=== PATIENT | female | born 1945 | race Caucasian/White ===

== ENCOUNTER 2016-09-05 14:37 | Outpatient (CLI) | payer MEDICARE, OTHER ==
--- NOTE | 2016-09-05 15:36 | XRAY Report ---
EXAM: CHEST RADIOGRAPHY EXAM DATE: 09/05/2016 02:46 PM. CLINICAL HISTORY: SMOKE INHALATION WHEEZING. COMPARISON: 05/10/2015 TECHNIQUE: 2 views. FINDINGS: Lungs/Pleura: No focal opacities evident. No pleural effusion. No pneumothorax. Normal volumes. Mediastinum: Heart and mediastinal contours are unremarkable. Age-related degenerative changes in the spine. None. IMPRESSION: Negative 2-view chest radiography for acute findings or significant change since 05/10/19 16. [facility] Referring Provider Line: [phone] SITE ID: [id number]
== END 2016-09-05 14:38 | disposition home or self-care (01) ==
LOC: DI 14:37
PROVIDERS: ATTEND Internal Medicine
DX: J70.5 Respiratory conditions due to smoke inhalation (principal); R06.2 Wheezing
CPT/HCPCS: 71020

== ENCOUNTER 2016-12-18 13:17 | Outpatient (CLI) | payer MEDICARE, OTHER ==
--- NOTE | 2016-12-18 14:53 | Ultrasound Report ---
RIGHT UPPER QUADRANT ULTRASOUND: 12/18/2016 CLINICAL INDICATION: Distention. TECHNIQUE: Real-time scanning was performed with marketing development representative static images obtained. FINDINGS: The liver measures 18.2 cm. Hepatic echotexture is increased, compatible with fatty infil tration. No focal parenchymal lesion or intrahepatic biliary dilatation is present. The common bile duct measures 5 mm. The gallbladder is normal. The right kidney measures 13.4 cm, and demonstrates a 4.4 cm superior pole cyst. No solid renal lesion or hydronephrosis is seen. IMPRESSION: FATTY INFILTRATION OF THE LIVER. INCIDENTAL RIGHT RENAL CYST. JOB #: [id number] EXT JOB #:[id number]
== END 2016-12-18 13:18 | disposition home or self-care (01) ==
LOC: DI 13:17
PROVIDERS: ATTEND Internal Medicine
DX: K76.0 Fatty (change of) liver, not elsewhere classified (principal)
CPT/HCPCS: 76705

== ENCOUNTER 2017-04-18 16:18 | Outpatient (CLI) | payer MEDICARE, OTHER ==
--- NOTE | 2017-04-19 15:51 | Mammography Report ---
DATE OF SERVICE: 04/18/2017 DIGITAL SCREENING MAMMOGRAM: 04/18/2017 CLINICAL INDICATION: A 71-year-old with history of benign right excisional biopsy for screening. COMPARISON: Films from [place], [place] dated 02/15/2012, 09/08/2010. TECHNIQUE: Routine CC and MLO projections were obtained of the breasts. FINDINGS: The breasts again demonstrate scattered fibroglandular densities bilaterally. Coarse and punctate, typically benign calcifications are present, no suspicious masses, clustered microcalcifications, or regions of architectural distortion are identified. IMPRESSION: BENIGN FINDINGS. RECOMMENDATION: Routine annual screening unless otherwise clinically indicated. BIRADS 2 - BENIGN FINDINGS. STANDARD QUALIFYING STATEMENTS: 1. This examination was reviewed with the aid of Computer-Aided Detection (CAD). 2. A negative or benign imaging report should not delay biopsy if clinically suspicious findings are present. Consider surgical consultation if warranted. More than 5% of cancers are not identified by imaging. 3. Dense breasts may obscure an underlying neoplasm. TD: 04/19/2017 15:50
== END 2017-04-18 16:19 | disposition home or self-care (01) ==
LOC: DI 16:18
PROVIDERS: ATTEND Internal Medicine
DX: Z12.31 Encounter for screening mammogram for malignant neoplasm of breast (principal)
CPT/HCPCS: 77067

== ENCOUNTER 2017-06-04 03:05 | Emergency (ER) | payer MEDICARE, OTHER ==
[2017-06-04 03:22] VITALS: BP 163/77
[2017-06-04 03:45] LABS: BILIRUBIN,URINE NEGATIVE (NEGATIVE); GLUCOSE, URINE (UA) 100 mg/dL (NEGATIVE); KETONES,URINE (UA) NEGATIVE (NEGATIVE); LEUKOCYTE ESTERASE, URINE TRACE (NEGATIVE); NITRITE,URINE POSITIVE (NEGATIVE); OCCULT BLOOD,URINE MODERATE (NEGATIVE); PH,URINE 6.5 PH (5.0-7.5); PROTEIN,URINE TRACE mg/dL (NEGATIVE); UROBILINOGEN,URINE 1 (NORMAL) E.U./dL (NORMAL)
[2017-06-04 03:47] LABS: CLARITY,URINE CLEAR (CLEAR)
--- NOTE | 2017-06-04 03:50 | ED Physician Documentation ---
PD HPI FEMALE - Stated complaint Stated Complaint: FEMALE - Chief complaint Chief Complaint: Abd Pain - History obtained from History obtained from: Patient - History of Present Illness Timing - onset: Today Timing - details: Abrupt onset, Still present Associated symptoms: Other (urinary retention) Similar symptoms before: Work up / diagnostics, Treatment Recently seen: Emergency Dept - Additional information Additional information: Patient is a 71 year old female who recently had botox injections on her bladder. Since that time patient has had to have an indewlling kenyon. patient was away on a trip and had issues with the kenyon. patient developed a uti and was started on cipro. during the drive home today patient thinks her catheter was dislodged or blocked since patient hasn't had any urine in her back but she has leaked around it and filled multiple pads. Review of Systems Constitutional: denies: Fever, Chills Eyes: reports: Reviewed and negative Ears: reports: Reviewed and negative Nose: reports: Reviewed and negative Throat: reports: Reviewed and negative Cardiac: reports: Reviewed and negative Respiratory: reports: Reviewed and negative GI: reports: Abdominal Pain. denies: Nausea, Vomiting : reports: Dysuria, Unable to Void Skin: denies: Rash, Lesions Musculoskeletal: reports: Reviewed and negative Neurologic: reports: Reviewed and negative Psychiatric: reports: Reviewed and negative Endocrine: reports: Reviewed and negative PD PAST MEDICAL HISTORY - Past Medical History Cardiovascular: Hypertension, High cholesterol Respiratory: COPD Neuro: Peripheral neuropathy Endocrine/Autoimmune: Type 2 diabetes : Incontinence, Frequency Psych: Depression Musculoskeletal: Osteoarthritis - Past Surgical History Past Surgical History: Yes Ortho: Knee replacement, Spine surgery /HYDROSTATIC TUBING TESTER: Hysterectomy - Present Medications Home Medications: Ambulatory Orders Medication Instructions Recorded Confirmed Aspirin Chewable [St Mian 81 mg PO DAILY 02/15/13 12/03/13 Aspirin] Biotin 10,000 mcg PO DAILY 02/15/13 12/03/13 Bupropion HCl [Wellbutrin] 150 mg PO BID 02/15/13 12/03/13 Cholecalciferol (Vitamin D3) 2,000 units PO DAILY 02/15/13 12/03/13 [Vitamin D-3] Flaxseed Oil 2,000 mg PO DAILY 02/15/13 12/03/13 Fluticasone/Salmeterol 100/50 1 puffs INH BID 02/15/13 12/03/13 [Advair 100 Mcg/50 Mcg] Gabapentin [Gralise] 600 mg PO TID 02/15/13 12/03/13 Hydrochlorothiazide 25 mg PO DAILY 02/15/13 12/03/13 Ipratropium/Albuterol Inhaler 1 puffs INH PRN 02/15/13 12/03/13 [Combivent Inhaler] Lisinopril 20 mg PO QPM 02/15/13 12/03/13 Metformin HCl 500 mg PO BID 02/15/13 12/03/13 Simvastatin 20 mg PO QPM 02/15/13 12/03/13 Tramadol HCl 50 mg PO TID 02/15/13 12/03/13 oxyCODONE/ACET 5/325 [Percocet 5 1 each PO HS PRN 02/15/13 12/03/13 mg/325 mg] Calcium Carbonate/Vitamin D3 1 tab PO BID 12/03/13 12/03/13 [Calcium 600 + Vit D3 Tablet] Cinnamon Bark [Cinnamon] 4,000 mg PO BID 12/03/13 12/03/13 Cyanocobalamin/Folic Acid [Vitamin 1 tab PO DAILY 12/03/13 12/03/13 R45-Pyxwk Acid Tablet] Methyl-B12/l-Mefolate/B6 Phos 1 tab PO BID 12/03/13 12/03/13 [j-Bumuff-I2-B12 Tablet] Mirabegron [Myrbetriq] 50 mg PO DAILY 12/03/13 12/03/13 Multivit-Min/FA/Lycopene/Lut 1 tab PO DAILY 12/03/13 12/03/13 [Centrum Silver Tablet] cephALEXin [Keflex] 500 mg PO Q6H #28 capsule 12/03/13 Cephalexin [Keflex] 500 mg PO Q8HR 7 Days capsule 06/04/17 - Allergies Allergies/Adverse Reactions: Allergies Allergy/AdvReac Type Severity Reaction Status Date / Time No Known Drug Allergies Allergy Verified 06/04/17 03:22 - Social History Does the pt smoke?: No Smoking Status: Never smoker Does the pt drink ETOH?: No Does the pt have substance abuse?: No - Immunizations Immunizations are current?: Yes - POLST Patient has POLST: No PD ED PE NORMAL - Vitals Vital signs reviewed: Yes - General General: Alert and oriented X 3, No acute distress - HEENT HEENT: Atraumatic - Cardiac Cardiac: RRR - Respiratory Respiratory: No respiratory distress - Abdomen Abdomen: Soft - Derm Derm: Normal color, No rash - Extremities Extremities: No deformity, No edema - Neuro Neuro: Alert and oriented X 3, No motor deficit, Normal speech Eye Opening: Spontaneous Results - Vitals Vitals: Vital Signs - 24 hr 06/04/17 03:05 Temperature 36.0 C L Heart Rate 85 Respiratory 15 Rate Blood Pressure 163/77 H O2 Saturation 97 Oxygen O2 Source Room air - Labs Labs: Laboratory Tests 06/04/17 03:32 Urine Color ORANGE Urine Clarity CLEAR Urine pH 6.5 Ur Specific [place] <=1.005 Urine Protein TRACE Urine Glucose (UA) 100 H Urine Ketones NEGATIVE Urine Occult Blood MODERATE H Urine Nitrite POSITIVE H Urine Bilirubin NEGATIVE Urine Urobilinogen 1 (NORMAL) Ur Leukocyte Esterase TRACE H Urine RBC 11-25 H Urine WBC 0-3 Ur Squamous Epith Cells NONE SEEN Urine Bacteria None Seen Ur Microscopic Review INDICATED Urine Culture Comments INDICATED PD MEDICAL DECISION MAKING - ED course Complexity details: reviewed old records, reviewed results, re-evaluated patient , considered differential, d/w patient ED course: Patient was seen and examined at bedside. Kenyon catheter was placed and drained over 500ml of urine. Urine was collected and showed signs of uti. patient was started on keflex. patient required no further work up and was stable for discharge with outpatient follow up. Departure - Departure Disposition: 01 Home, Self Care Clinical Impression: Urinary tract infection Condition: Good Instructions: ED UTI Cystitis Female Follow-Up: Leora Ca MD [Primary Care Provider] - Within 3 Days Prescriptions: Cephalexin [Keflex] 500 mg PO Q8HR 7 Days capsule Comments: Your symptoms today are being caused by urinary tract infection and urinary retention. You have been started on keflex. You will take it three times a day for the next week. You should follow up with your doctor this week. You may return to the emergency department at any time for new, worsening or uncontrollable symptoms.
[2017-06-04] MEDS ORDERED: cephALEXin 250 MG CAPSULE PO STA (04:04)
[2017-06-04 04:07] LABS: BACTERIA,URINE None Seen /HPF (None Seen); SQUAMOUS EPITHELIAL CELL,UR NONE SEEN (<= Few)
== END 2017-06-04 04:23 | disposition home or self-care (01) ==
LOC: ED 03:05
DX: N39.0 Urinary tract infection, site not specified (principal); R33.9 Retention of urine, unspecified; I10 Essential (primary) hypertension; E78.00 Pure hypercholesterolemia, unspecified; E11.42 Type 2 diabetes mellitus with diabetic polyneuropathy; Z96.0 Presence of urogenital implants; Z79.82 Long term (current) use of aspirin; Z96.659 Presence of unspecified artificial knee joint
CPT/HCPCS: 51702; 81001; 81003; 87086; 99283

== ENCOUNTER 2018-10-28 16:04 | Outpatient (CLI) | payer MEDICARE, OTHER ==
[2018-10-28 16:37] LABS: BASOPHILS % (AUTO) 0.5 %; EOSINOPHILS # (AUTO) 0.2 10^3/uL (0.0-0.7); EOSINOPHILS % (AUTO) 2.2 %; HGB - HEMOGLOBIN 13.1 g/dL (12.0-16.0); LYMPHOCYTES # (AUTO) 1.4 10^3/uL (1.5-3.5); LYMPHOCYTES % (AUTO) 17.6 %; MEAN CORPUSCULAR HEMOGLOBIN 29.9 pg (27.0-31.0); MEAN CORPUSCULAR HGB CONC 31.4 g/dL (32.0-36.0); MEAN CORPUSCULAR VOLUME 95.2 fL (81.0-99.0); MEAN PLATELET VOLUME 9.7 fL (7.9-10.8); MONOCYTES # (AUTO) 0.9 10^3/uL (0.0-1.0); NEUTROPHILS # (AUTO) 5.6 10^3/uL (1.5-6.6); NEUTROPHILS % (AUTO) 68.2 %; PLT - PLATELET COUNT 275 10^3/uL (130-450); RED BLOOD COUNT 4.38 10^6/uL (4.20-5.40); RED CELL DISTRIBUTION WIDTH 13.2 % (12.0-15.0); WHITE BLOOD COUNT 8.2 x10^3/uL (4.8-10.8)
[2018-10-28 16:55] LABS: ALBUMIN 3.6 g/dL (3.2-5.5); BILIRUBIN,TOTAL 0.4 mg/dL (0.2-1.0); CALCIUM 9.4 mg/dL (8.5-10.3); CREATININE 0.6 mg/dL (0.4-1.0); TOTAL PROTEIN 7.2 g/dL (6.7-8.2)
[2018-10-28 16:57] LABS: HB2 TOTAL 13.9 g/dL; HEMOGLOBIN A1C 0.61 g/dL; HEMOGLOBIN A1C % 6.2 % (4.6-6.2)
== END 2018-10-28 16:05 | disposition home or self-care (01) ==
LOC: LAB 16:04
PROVIDERS: ATTEND Internal Medicine
DX: G64 Other disorders of peripheral nervous system (principal); E11.9 Type 2 diabetes mellitus without complications; I10 Essential (primary) hypertension; R60.9 Edema, unspecified; R06.02 Shortness of breath; Z79.899 Other long term (current) drug therapy; M25.519 Pain in unspecified shoulder; R29.898 Other symptoms and signs involving the musculoskeletal system
CPT/HCPCS: 36415; 80053; 83036; 83880; 85025

== ENCOUNTER 2020-08-27 12:31 | Outpatient (CLI) | payer MEDICARE, OTHER ==
--- NOTE | 2020-08-27 13:53 | XRAY Report ---
PROCEDURE: Chest 2 View X-Ray INDICATIONS: CHEST WALL APIN AFTER TRAUMA TECHNIQUE: 2 view(s) of the chest. COMPARISON: None. FINDINGS: Surgical changes and devices: None. Lungs and pleura: No pleural effusions or pneumothorax. Ill-defined airspace opacity in right lower lung field is seen concerning for right lower lobe infiltrate/contusion. Mediastinum: Mediastinal contours are normal. Heart size is enlarged. Bones and chest wall: No obvious displaced rib fracture is seen. Soft tissues appear unremarkable. IMPRESSION: Finding is suggestive of small right basilar infiltrate/contusion. No pleural effusion o r pneumothorax. Reviewed by: Jamie Canas MD on 08/27/2020 1:51 PM PDT Approved by: Jamie Canas MD on 08/27/2020 1:51 PM PDT Station ID: [id number]
--- NOTE | 2020-08-27 13:54 | XRAY Report ---
PROCEDURE: Ribs 2 View LT INDICATIONS: CHEST WALL APIN AFTER TRAUMA TECHNIQUE: 2 views of the left ribs were acquired. COMPARISON: Chest radiograph from the same day. FINDINGS: Surgical changes and devices: None. Bones and chest wall: Subtle irregularity involving left anterolateral seventh rib is seen suggestive of a nondisplaced fracture.. No suspicious bony lesions. Overlying soft tissues appear unremarkabl e. Lungs and pleura: The visualized lung appears clear. No pleural effusions or pneumothorax are visib le. IMPRESSION: Finding is suggestive of the nondisplaced left anterolateral seventh rib fracture. Visualized left cezar ng field is clear. Reviewed by: Jamie Canas MD on 08/27/2020 1:53 PM PDT Approved by: Jamie Canas MD on 08/27/2020 1:53 PM PDT Station ID: [id number]
== END 2020-08-27 12:32 | disposition home or self-care (01) ==
LOC: DI 12:31
PROVIDERS: ATTEND Internal Medicine
DX: R07.89 Other chest pain (principal); S22.32XA Fracture of one rib, left side, initial encounter for closed fracture

== ENCOUNTER 2021-02-04 08:00 | Outpatient (CLI) | payer MEDICARE, OTHER ==
[2021-02-04 22:00] LABS: BACTERIAL VAGINOSIS DNA NEGATIVE (NEGATIVE); CANDIDA GLABRATA DNA NEGATIVE (NEGATIVE); CANDIDA GROUP DNA NEGATIVE (NEGATIVE); CANDIDA KRUSEI DNA NEGATIVE (NEGATIVE); TRICHOMONAS VAGINALIS DNA NEGATIVE (NEGATIVE)
[2021-02-04 23:12] LABS: CHLAMYDIA TRACHOMATIS DNA NEGATIVE (NEGATIVE); NEISSERIA GONORRHOEAE DNA NEGATIVE (NEGATIVE); TRICHOMONAS VAGINALIS DNA NEGATIVE (NEGATIVE)
== END 2021-02-04 23:59 | disposition home or self-care (01) ==
LOC: LAB 08:00
PROVIDERS: ATTEND Obstetrics & Gynecology
DX: N89.8 Other specified noninflammatory disorders of vagina (principal)
CPT/HCPCS: 87491; 87591; 87661; 87801

== ENCOUNTER 2021-03-01 13:28 | Outpatient (CLI) | payer MEDICARE, OTHER | END 2021-03-01 13:29 | disposition short-term general hospital (02) | LOC: EMS 13:28 | DX: U07.1 COVID-19 (principal) | CPT/HCPCS: A0425; A0429 ==

== ENCOUNTER 2021-04-04 14:41 | Outpatient (CLI) | payer MEDICARE, OTHER ==
--- NOTE | 2021-04-05 08:19 | Mammography Report ---
BILATERAL DIGITAL SCREENING MAMMOGRAM 3D/2D: 04/04/2021 CLINICAL: Routine screening. Comparison is made to exams dated: 04/18/2017 mammogram and 02/15/2012 mammogram - [facility]. The tissue of both breasts is predominantly fatty. No significant masses, calcifications, or other findings are seen in either breast. There has been no significant interval change. IMPRESSION: NEGATIVE There is no mammographic evidence of malignancy. A 1 year screening mammogram is recommended. This exam was interpreted at Station ID: [id number]. NOTE: For mammograms, a report in lay terms will be sent to the patient. Approximately 15% of breast malignancies will not be visualized mammographically. In the management of a palpable breast mass, a negative mammogram must not discourage biopsy of a clinically suspicious lesion. Electronically Signed By: Tim James M.D., jr/calvin:04/04/2021 16:37:28 ACR BI-RADS Category 1: Negative 3341F PARENCHYMAL PATTERN: (F) - The breast(s) demonstrate(s) diffuse fatty replacement. BI-RADS CATEGORY: (1) - 1 RECOMMENDATION: (ANNUAL) - Recommend routine annual screening mammography. [id number] 1 year screening LATERALITY: (B)
== END 2021-04-04 14:42 | disposition home or self-care (01) ==
LOC: DI.N 14:41
PROVIDERS: ATTEND Internal Medicine
DX: Z12.31 Encounter for screening mammogram for malignant neoplasm of breast (principal)

== ENCOUNTER 2021-04-12 16:33 | Outpatient (CLI) | payer MEDICARE, OTHER ==
[2021-04-12 16:47] LABS: BASOPHILS # (AUTO) 0.1 10^3/uL (0.0-0.1); BASOPHILS % (AUTO) 0.8 %; EOSINOPHILS # (AUTO) 0.2 10^3/uL (0.0-0.7); EOSINOPHILS % (AUTO) 2.1 %; HCT - HEMATOCRIT 44.5 % (37.0-47.0); LYMPHOCYTES # (AUTO) 1.5 10^3/uL (1.5-3.5); LYMPHOCYTES % (AUTO) 16.1 %; MEAN CORPUSCULAR HEMOGLOBIN 30.3 pg (27.0-31.0); MEAN CORPUSCULAR HGB CONC 31.5 g/dL (32.0-36.0); MEAN CORPUSCULAR VOLUME 96.3 fL (81.0-99.0); MEAN PLATELET VOLUME 9.6 fL (7.9-10.8); NEUTROPHILS # (AUTO) 6.2 10^3/uL (1.5-6.6); NEUTROPHILS % (AUTO) 69.6 %; PLT - PLATELET COUNT 287 10^3/uL (130-450); RED BLOOD COUNT 4.62 10^6/uL (4.20-5.40); RED CELL DISTRIBUTION WIDTH 13.2 % (12.0-15.0)
[2021-04-12 17:01] LABS: ALBUMIN 3.6 g/dL (3.2-5.5); ALBUMIN/GLOBULIN RATIO 1.1 (1.0-2.2); BILIRUBIN,TOTAL 0.5 mg/dL (0.2-1.0); CALCIUM 9.4 mg/dL (8.5-10.3); CREATININE 0.7 mg/dL (0.4-1.0); POTASSIUM 3.6 mmol/L (3.5-5.0)
--- NOTE | 2021-04-13 11:10 | XRAY Report ---
PROCEDURE: Chest 2 View X-Ray INDICATIONS: DYSPNEA TECHNIQUE: 2 view(s) of the chest. COMPARISON: Chest x-ray 08/27/2020 FINDINGS: Surgical changes and devices: None. Lungs and pleura: Mild bibasilar opacities, right greater than left. Streaky left basilar opacities a re present. Mediastinum: Mediastinal contours are normal. Heart size is enlarged. Bones and chest wall: No suspicious bony abnormalities. Soft tissues appear unremarkable. IMPRESSION: Bibasilar opacities most notable in the right base suggestive of developing pneumonia or other airspace disease. Linear left basilar opacities are likely atelectasis. Reviewed by: Araceli Rosario MD on 04/13/2021 11:08 AM PST Approved by: Araceli Rosario MD on 04/13/2021 11:08 AM [facility] Station ID: [id number]
== END 2021-04-12 16:34 | disposition home or self-care (01) ==
LOC: LAB 16:33
PROVIDERS: ATTEND Internal Medicine
DX: U07.1 COVID-19 (principal); R60.9 Edema, unspecified; E11.9 Type 2 diabetes mellitus without complications; R06.00 Dyspnea, unspecified; R05.1 Acute cough; R91.8 Other nonspecific abnormal finding of lung field
CPT/HCPCS: 36415; 80053; 83880; 84443; 85025

== ENCOUNTER 2021-04-16 16:08 | Outpatient (CLI) | payer MEDICARE, OTHER | END 2021-04-16 16:09 | disposition short-term general hospital (02) | LOC: EMS 16:08 | DX: I48.92 Unspecified atrial flutter (principal) | CPT/HCPCS: A0425; A0429 ==

== ENCOUNTER 2021-05-26 09:18 | Outpatient (CLI) | payer MEDICARE, OTHER | END 2021-05-26 09:19 | disposition home or self-care (01) | LOC: DI 09:18 | PROVIDERS: ATTEND Internal Medicine | DX: I48.92 Unspecified atrial flutter (principal); R60.9 Edema, unspecified; I51.7 Cardiomegaly; I49.3 Ventricular premature depolarization | CPT/HCPCS: 93306 ==

== ENCOUNTER 2021-11-24 15:02 | Outpatient (CLI) | payer MEDICARE, OTHER ==
--- NOTE | 2021-11-24 17:48 | Ultrasound Report ---
PROCEDURE: Abdomen Limited INDICATIONS: RUQ PAIN TECHNIQUE: Real-time scanning was performed of the abdominal and retroperitoneal organs, with image documentatio n. COMPARISON: None. FINDINGS: Liver: Liver is enlarged measuring 17.8 cm with steatosis. Gallbladder: No stones. Wall thickness is normal measuring 1.4 mm. Biliary ducts: Intrahepatic bile ducts are non-dilated. Extrahepatic bile duct caliber measures 5.0 mm. Normal is 6-7 mm or less in diameter, or 10 mm or less post-cholecystectomy. Pancreas: Visualized portions of the pancreas are sonographically normal. Kidneys: Right kidney measures 12.3 cm long. No hydronephrosis or nephrolithiasis. No solid masses . Simple right renal cyst is unchanged. IMPRESSION: Hepatomegaly with steatosis. Unchanged simple right renal cyst. Reviewed by: Araceli Rosario MD on 11/24/2021 5:46 PM PDT Approved by: Araceli Rosario MD on 11/24/2021 5:46 PM PDT Station ID: [id number]
== END 2021-11-24 15:03 | disposition home or self-care (01) ==
LOC: DI 15:02
PROVIDERS: ATTEND Internal Medicine
DX: R16.0 Hepatomegaly, not elsewhere classified (principal); K76.0 Fatty (change of) liver, not elsewhere classified; N28.1 Cyst of kidney, acquired

== ENCOUNTER 2021-12-06 08:00 | Outpatient (CLI) | payer MEDICARE, OTHER ==
[2021-12-06 18:28] LABS: BASOPHILS # (AUTO) 0.1 10^3/uL (0.0-0.1); BASOPHILS % (AUTO) 0.8 %; EOSINOPHILS # (AUTO) 0.2 10^3/uL (0.0-0.7); EOSINOPHILS % (AUTO) 2.2 %; HCT - HEMATOCRIT 42.6 % (37.0-47.0); HGB - HEMOGLOBIN 13.8 g/dL (12.0-16.0); LYMPHOCYTES # (AUTO) 1.1 10^3/uL (1.5-3.5); LYMPHOCYTES % (AUTO) 11.4 %; MEAN CORPUSCULAR HEMOGLOBIN 31.3 pg (27.0-31.0); MEAN CORPUSCULAR HGB CONC 32.4 g/dL (32.0-36.0); MEAN CORPUSCULAR VOLUME 96.6 fL (81.0-99.0); MEAN PLATELET VOLUME 10.3 fL (7.9-10.8); MONOCYTES # (AUTO) 0.7 10^3/uL (0.0-1.0); MONOCYTES % (AUTO) 7.6 %; NEUTROPHILS # (AUTO) 7.2 10^3/uL (1.5-6.6); NEUTROPHILS % (AUTO) 77.7 %; PLT - PLATELET COUNT 292 10^3/uL (130-450); RED BLOOD COUNT 4.41 10^6/uL (4.20-5.40); RED CELL DISTRIBUTION WIDTH 12.7 % (12.0-15.0); WHITE BLOOD COUNT 9.3 x10^3/uL (4.8-10.8)
[2021-12-06 18:41] LABS: ALBUMIN 3.8 g/dL (3.2-5.5); ALBUMIN/GLOBULIN RATIO 1.2 (1.0-2.2); BILIRUBIN,TOTAL 0.6 mg/dL (0.2-1.0); CALCIUM 9.8 mg/dL (8.5-10.3); CREATININE 0.7 mg/dL (0.4-1.0); POTASSIUM 4.3 mmol/L (3.5-5.0); TOTAL PROTEIN 7.1 g/dL (6.7-8.2)
[2021-12-06 18:51] LABS: THYROID STIMULATING HORMONE 1.06 uIU/mL (0.34-5.60)
[2021-12-06 18:57] LABS: FERRITIN 34.6 ng/mL (11.0-306.8)
[2021-12-06 19:41] LABS: ESTIMATED AVERAGE GLUCOSE 157 mg/dL (70-100); HEMOGLOBIN A1c% 7.1 % (4.27-6.07)
== END 2021-12-06 23:59 | disposition home or self-care (01) ==
LOC: LAB.R 08:00
PROVIDERS: ATTEND Internal Medicine
DX: E11.9 Type 2 diabetes mellitus without complications (principal); R53.83 Other fatigue; R42 Dizziness and giddiness
CPT/HCPCS: 80053; 82728; 83036; 83540; 84443; 84466; 85025

== ENCOUNTER 2021-12-19 08:00 | Outpatient (CLI) | payer MEDICARE, OTHER ==
[2021-12-19 16:23] LABS: INFECTIOUS MONONUCLEOSIS NEGATIVE (Negative)
== END 2021-12-19 23:59 | disposition home or self-care (01) ==
LOC: LAB.R 08:00
PROVIDERS: ATTEND Internal Medicine
DX: R53.83 Other fatigue (principal)
CPT/HCPCS: 86308

== ENCOUNTER 2022-01-27 07:31 | Day surgery (SDC) | payer MEDICARE, OTHER ==
[2022-01-27] MEDS ORDERED: LACTATED RINGERS 1,000 ML IV ONE ×2 (08:18→09:59)
[2022-01-27] MEDS ORDERED: ALBUTEROL 8 GM INHALER INH ONE (08:26)
--- NOTE | 2022-01-27 08:33 | ANESTHESIA ---
Pre-Anesthesia VS, & Labs - Diagnosis hx of polyps - Procedure colonoscopy Vital Signs: Temp Pulse Resp BP Pulse Ox O2 Flow Rate 36.5 C 78 18 138/71 H 95 01/27/22 08:03 01/27/22 08:03 01/27/22 08:03 01/27/22 08:03 01/27/22 08:03 Height: 5 ft 9 in Weight (kg): 142 kg Body Mass Index: 46.2 BMI Classification: Morbidly Obese - NPO >8 hours - Is Patient ?: No - Lab Results Current Lab Results: Laboratory Tests 01/27/22 08:16: POC Whole Bld Glucose 149 H Home Medications and Allergies Home Medications: Ambulatory Orders Furosemide [Lasix] 20 mg PO DAILY 01/26/22 Metoprolol Tartrate [Lopressor] 25 mg PO BID 01/26/22 Spironolactone [Aldactone] 25 mg PO DAILY 01/26/22 Venlafaxine ER [Effexor ER] 37.5 mg PO DAILY 01/26/22 Rivaroxaban [Xarelto] 20 mg ORAL DAILY 01/27/22 Aspirin Chewable [St [place] Aspirin] 81 mg PO DAILY 02/15/13 Cholecalciferol (Vitamin D3) [Vitamin D-3] 2,000 units PO DAILY 02/15/13 Gabapentin [Gralise] 900 mg PO BID 02/15/13 Hydrochlorothiazide 50 mg PO DAILY 02/15/13 Simvastatin 20 mg PO QPM 02/15/13 Calcium Carbonate/Vitamin D3 [Calcium 600 + Vit D3 Tablet] 1 tab PO BID 12/03/13 Cyanocobalamin/Folic Acid [Vitamin U67-Whezw Acid Tablet] 1 tab PO DAILY 12/03/13 Mirabegron [Myrbetriq] 50 mg PO DAILY 12/03/13 Multivit-Min/FA/Lycopene/Lut [Centrum Silver Tablet] 1 tab PO DAILY 12/03/13 Ipratropium/Albuterol [Combivent Respimat] 20 - 100 mcg PO DAILY PRN 03/08/21 Tiotropium Br/Olodaterol HCl [Stiolto Respimat Inhal [place]] 2.5 mcg PO DAILY 03/08/21 amLODIPine [Norvasc] 10 mg PO DAILY 03/08/21 Furosemide [Lasix] 20 mg PO DAILY 01/26/22 Metoprolol Tartrate [Lopressor] 25 mg PO BID 01/26/22 Spironolactone [Aldactone] 25 mg PO DAILY 01/26/22 Venlafaxine ER [Effexor ER] 37.5 mg PO DAILY 01/26/22 Rivaroxaban [Xarelto] 20 mg ORAL DAILY 01/27/22 Allergies/Adverse Reactions: Allergies Allergy/AdvReac Type Severity Reaction Status Date / Time bupropion AdvReac Diaphoresis Verified 01/26/22 14:39 citalopram AdvReac Diaphoresis Verified 01/26/22 14:39 tramadol AdvReac Diaphoresis Verified 01/26/22 14:39 Anes History & Medical History - Anesthetic History Anesthesia Complications: reports: No previous complications Family history of Anesthesia Complications: Denies Family history of Malignant Hyperthermia: Denies - Medical History Cardiovascular: reports: Hypertension, High cholesterol, Atrial flutter, Atrial fibrillation Pulmonary: reports: COPD, Other (expiratory wheezing throughout) Urinary: reports: Incontinence Musculoskeletal: reports: Osteoarthritis Endocrine/Autoimmune: reports: Type 2 diabetes Smoking Status: Never smoker - Surgical History Urologic: reports: Bladder surgery Gynecologic: reports: Hysterectomy Orthopedic: reports: Knee replacement Exam General: Alert, Oriented x3, Cooperative Dental: Dentures full Upper, Dentures full Lower Mouth Openin Fingerbreadth Neck Mobility: Normal Mallampati classification: II Thyromental Distance: less than 4 cm Respiratory: Wheezing Cardiovascular: Other (Afib/flutter) Abdomen: Other (trunchal obesity) Extremities: Other (wound on RLE) Plan Anesthesia Type: Total IV Consent for Procedure(s) Verified and Reviewed: Yes Code Status: Attempt Resuscitation ASA classification: 3-Severe systemic disease Is this case an emergency?: No
[2022-01-27] MEDS ORDERED: PROPOFOL 500 MG/50 ML 500 MG/50 ML VIAL ONE (08:39)
[2022-01-27] MEDS ORDERED: MIDAZOLAM 2 MG/2 ML VIAL ONE (08:40)
--- NOTE | 2022-01-27 08:54 | HISTORY & PHYSICAL EXAMINATION ---
Chief Complaint - Chief Complaint Chief Complaint: here for colon cancer screening History of Present Illness - History Obtained From Records Reviewed: yes History obtained from: pt Exam Limitations: none - History of Present Illness HPI Comment/Other: last colonoscopy 10 years ago. 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 - POLST Patient has POLST: No Meds/Allgy - Home Medications Home Medications: Ambulatory Orders Medication Instructions Recorded Confirmed Aspirin Chewable [St Mian 81 mg PO DAILY 02/15/13 01/26/22 Aspirin] Cholecalciferol (Vitamin D3) 2,000 units PO DAILY 02/15/13 01/26/22 [Vitamin D-3] Gabapentin [Gralise] 900 mg PO BID 02/15/13 01/26/22 Hydrochlorothiazide 50 mg PO DAILY 02/15/13 01/26/22 Simvastatin 20 mg PO QPM 02/15/13 01/26/22 Calcium Carbonate/Vitamin D3 1 tab PO BID 12/03/13 01/26/22 [Calcium 600 + Vit D3 Tablet] Cyanocobalamin/Folic Acid [Vitamin 1 tab PO DAILY 12/03/13 01/26/22 L86-Wqvyr Acid Tablet] Mirabegron [Myrbetriq] 50 mg PO DAILY 12/03/13 01/26/22 Multivit-Min/FA/Lycopene/Lut 1 tab PO DAILY 12/03/13 01/26/22 [Centrum Silver Tablet] Ipratropium/Albuterol [Combivent 20 - 100 mcg PO DAILY PRN 03/08/21 01/26/22 Respimat] Tiotropium Br/Olodaterol HCl 2.5 mcg PO DAILY 03/08/21 01/26/22 [Stiolto Respimat Inhal [place]] amLODIPine [Norvasc] 10 mg PO DAILY 03/08/21 01/26/22 Furosemide [Lasix] 20 mg PO DAILY 01/26/22 01/26/22 Metoprolol Tartrate [Lopressor] 25 mg PO BID 01/26/22 01/26/22 Spironolactone [Aldactone] 25 mg PO DAILY 01/26/22 01/26/22 Venlafaxine ER [Effexor ER] 37.5 mg PO DAILY 01/26/22 01/26/22 Rivaroxaban [Xarelto] 20 mg ORAL DAILY 01/27/22 01/27/22 - Allergies Allergies/Adverse Reactions: Allergies Allergy/AdvReac Type Severity Reaction Status Date / Time bupropion AdvReac Diaphoresis Verified 01/26/22 14:39 citalopram AdvReac Diaphoresis Verified 01/26/22 14:39 tramadol AdvReac Diaphoresis Verified 01/26/22 14:39 Review of Systems - Other Findings Other Findings: 10 pt ros as above otherwise unremarkable Exam - Vital Signs Reviewed Vital Signs: Yes Vital Signs: Vital Signs x48h Temp Pulse Resp BP Pulse Ox 01/27/22 08:03 36.5 C 78 18 138/71 H 95 - Physical Exam General Appearance: positive: No acute distress, Alert Eyes Bilateral: positive: PERRL, EOMI, No scleral icterus ENT: positive: No signs of dehydration Neck: positive: No JVD, Trachea midline Respiratory: positive: Breath sounds nml Cardiovascular: positive: Irregularly irregular Abdomen: positive: Non-tender, No distention Neurologic/Psychiatric: positive: Oriented x3 Conclusion/Plan - Problem List (1) Colon cancer screening Conclusion/Plan: plan colonoscopy. parrq held and consent obtained
[2022-01-27] MEDS ORDERED: PROPOFOL 200 MG/20 ML VIAL IVP ONE ×2 (09:25→09:37)
[2022-01-27 10:43] VITALS: BP 134/58
--- NOTE | 2022-01-27 11:16 | ANESTHESIA POST OP EVALUATION ---
Anesthesia Post Eval - Post Anesthesia Eval Vitals: Last Vital Signs Temp 36.0 C L 01/27/22 10:15 Pulse 69 01/27/22 10:15 Resp 16 01/27/22 10:15 BP 134/58 H 01/27/22 10:15 Pulse Ox 96 01/27/22 10:15 O2 Flow Rate CV Function Including HR & BP: Stable Pain Control: Satisfactory Nausea & Vomiting: Negative Mental Status: Baseline Respiratory Status: Airway Patent Hydration Status: Satisfactory Anesthesia Complications: None
== END 2022-01-27 07:32 | disposition home or self-care (01) ==
LOC: SDS 07:31
PROVIDERS: ATTEND Surgery
PROC: 0DBL8ZX Excision of Transverse Colon, Via Natural or Artificial Opening Endoscopic, Diagnostic (ICD-10-PCS; 2022-01-27)
PROC: 0DBM8ZX Excision of Descending Colon, Via Natural or Artificial Opening Endoscopic, Diagnostic (ICD-10-PCS; 2022-01-27)
PROC: 0DBH8ZX Excision of Cecum, Via Natural or Artificial Opening Endoscopic, Diagnostic (ICD-10-PCS; 2022-01-27)
PROC: 0DBK8ZX Excision of Ascending Colon, Via Natural or Artificial Opening Endoscopic, Diagnostic (ICD-10-PCS; principal; 2022-01-27 08:45)
DX: Z12.11 Encounter for screening for malignant neoplasm of colon (principal); D12.2 Benign neoplasm of ascending colon; D12.4 Benign neoplasm of descending colon; D12.3 Benign neoplasm of transverse colon; K57.30 Diverticulosis of large intestine without perforation or abscess without bleeding; I10 Essential (primary) hypertension; E66.9 Obesity, unspecified; J44.9 Chronic obstructive pulmonary disease, unspecified; E66.01 Morbid (severe) obesity due to excess calories; Z68.42 Body mass index [BMI] 45.0-49.9, adult
CPT/HCPCS: 45380; 45385; A9270; J7120

== ENCOUNTER 2022-04-20 17:35 | Outpatient (CLI) | payer MEDICARE, OTHER ==
--- NOTE | 2022-04-21 08:45 | XRAY Report ---
PROCEDURE: Shoulder 3 View LT INDICATIONS: SHOULDER PAIN TECHNIQUE: 3 views of the shoulder were acquired. COMPARISON: None. FINDINGS: Bones: No fractures or dislocations. Mild to moderate acromioclavicular joint and glenohumeral join t osteoarthritic changes are seen with joint space narrowing, subchondral sclerosis and marginal oste ophyte formation. No suspicious bony lesions. Visualized ribs appear intact. Soft tissues: No suspicious soft tissue calcifications. IMPRESSION: Mild to moderate left shoulder joint osteophyte is. No fracture or dislocation. No gross soft tissue abnormalities. Reviewed by: Jamie Canas MD on 04/21/2022 8:44 AM PST Approved by: Jamie Canas MD on 04/21/2022 8:44 AM PST Station ID: [id number]
== END 2022-04-20 17:36 | disposition home or self-care (01) ==
LOC: DI 17:35
PROVIDERS: ATTEND Internal Medicine
DX: M19.012 Primary osteoarthritis, left shoulder (principal)

== ENCOUNTER 2022-06-13 15:34 | Outpatient (CLI) | payer MEDICARE, OTHER ==
--- NOTE | 2022-06-13 16:08 | XRAY Report ---
PROCEDURE: Shoulder 3 View RT INDICATIONS: RIGHT SHOULDER PAIN TECHNIQUE: 4 views of the shoulder were acquired. COMPARISON: None. FINDINGS: Bones: Moderate glenohumeral and acromioclavicular degenerative changes. No displaced fracture or dis location. Soft tissues: No suspicious calcifications. IMPRESSION: Moderate degenerative changes of the glenohumeral and acromioclavicular joints. If there is high conc idania for further derangement, consider MRI evaluation. Reviewed by: Theron Munguia MD on 06/13/2022 4:07 PM PDT Approved by: Theron Munguia MD on 06/13/2022 4:07 PM PDT Station ID: [id number]
--- NOTE | 2022-06-13 16:11 | XRAY Report ---
PROCEDURE: Shoulder 1 View LT INDICATIONS: LEFT SHOULDER PAIN, AXIAL VIEW ONLY TO COMPLETE STUDY TECHNIQUE: 1 views of the shoulder were acquired. COMPARISON: April 20, 2022 FINDINGS AND IMPRESSION: A single axillary view was obtained without acute radiographic abnormality. Please see prior radiogra ph report. Degenerative changes are present. There may be a small bone fragment adjacent to the proxi mal humerus. If there is high concern for further derangement, consider MRI evaluation. Reviewed by: Theron Munguia MD on 06/13/2022 4:10 PM PDT Approved by: Theron Munguia MD on 06/13/2022 4:10 PM PDT Station ID: [id number]
== END 2022-06-13 15:35 | disposition home or self-care (01) ==
LOC: DI.WOS 15:34
PROVIDERS: ATTEND Physician Assistant Surgical
DX: M19.012 Primary osteoarthritis, left shoulder (principal); M19.011 Primary osteoarthritis, right shoulder

== ENCOUNTER 2022-07-24 15:47 | Outpatient (CLI) | payer MEDICARE, OTHER ==
--- NOTE | 2022-07-25 09:17 | Mammography Report ---
BILATERAL DIGITAL SCREENING MAMMOGRAM 3D/2D: 07/24/2022 CLINICAL: Routine screening. Comparison is made to exams dated: 04/04/2021 mammogram, 04/18/2017 mammogram, and 02/15/2012 mammogra m - [facility]. There are scattered areas of fibroglandular density in both breasts (category b / 25%-50% glandular t issue). No significant masses, calcifications, or other findings are seen in either breast. There has been no significant interval change. IMPRESSION: NEGATIVE There is no mammographic evidence of malignancy. A 1 year screening mammogram is recommended. Based on the Tyrer Cuzick model (a risk assessment model) the patients lifetime risk is 3.5% and her 10 year risk is 3.5%. According to the ACR, ACS, and NCCN guidelines, an annual breast MRI exam felipa g with mammogram is recommended if the patients lifetime risk is 20% or greater. This exam was interpreted at Station ID: [id number]. NOTE: For mammograms, a report in lay terms will be sent to the patient. Approximately 15% of breast malignancies will not be visualized mammographically. In the management of a palpable breast mass, a negative mammogram must not discourage biopsy of a clinically suspicious lesion. Electronically Signed By: Catracho masterson/calvin:07/25/2022 07:32:15 letter sent: No_Letter ACR BI-RADS Category 1: Negative 3341F PARENCHYMAL PATTERN: (A) - The breast(s) demonstrate(s) scattered fibroglandular densities. BI-RADS CATEGORY: (1) - 1 Mammogram [id number] 1 year screening LATERALITY: (B)
== END 2022-07-24 15:48 | disposition home or self-care (01) ==
LOC: DI.N 15:47
PROVIDERS: ATTEND Internal Medicine
DX: Z12.31 Encounter for screening mammogram for malignant neoplasm of breast (principal)

== ENCOUNTER 2022-11-23 10:50 | Outpatient (CLI) | payer MEDICARE, OTHER | END 2022-11-23 10:51 | disposition home or self-care (01) | LOC: NS 10:50 | PROVIDERS: ATTEND Internal Medicine | DX: Z71.3 Dietary counseling and surveillance (principal); E11.9 Type 2 diabetes mellitus without complications | CPT/HCPCS: 97802 ==

== ENCOUNTER 2023-01-19 10:51 | Outpatient (CLI) | payer MEDICARE, OTHER ==
--- NOTE | 2023-01-19 17:41 | CT Report ---
PROCEDURE: ABDOMEN/PELVIS WO INDICATIONS: FLANK PAIN TECHNIQUE: A CT scan of the abdomen and pelvis was performed without the use of intravenous contrast. Images we re recorded and evaluated at appropriate window settings. Reformats: coronal and sagittal. For radiat ion dose reduction, the following was used: automated exposure control, adjustment of mA and/or kV ac cording to patient size. COMPARISON: Correlation is made with the overlapping portions to CT examinations, including 10/21/2021 and 07/28/2022. FINDINGS: Image quality: This study is limited by body habitus. Lung bases and heart: Unremarkable. Liver: No solid mass. An enlarged, fatty infiltrated liver is seen. Gallbladder and biliary tree: Within normal limits. Spleen: No splenomegaly. Pancreas: No pancreatic ductal dilation. Adrenals: There is a 3.8 cm left adrenal nodule seen that measures approximately 15 Hounsfield units. The right adrenal gland is normal. Kidneys and ureters: There is a nonobstructing right-sided kidney stone seen inferiorly, as on series 2 image 50, measuring 5 to 6 mm and measuring 300 Hounsfield units. No left-sided kidney stones are seen. No hydronephrosis or hydroureter can be seen on either side. No ureteral stones are seen. On th e right, there is a low-density large exophytic cyst seen anteriorly and superiorly that measures up to 4.3 cm and measures approximately 30 Hounsfield units. Bowel and peritoneum: No bowel distension. No pathologic free fluid. Diverticulosis can be seen, with out deacon findings of active diverticulitis. Lymph nodes: No central or retroperitoneal adenopathy. Vessels: No infrarenal aortic aneurysm. PELVIS Reproductive organs: This patient is status post hysterectomy. No adnexal masses can be seen. Bladder: No wall thickness, accounting for underdistention. Pelvic lymph nodes: No pelvic adenopathy by size criteria. Bones: No aggressive osseous abnormality. Mild levoconvex scoliotic curvature is seen. Degenerative changes are seen throughout, which are worst involving the lower lumbar spine. Other: No significant ventral or inguinal hernia. IMPRESSION: There is a 5 to 6 mm nonobstructing right-sided kidney stone. No ureteral stones, hydroureter, or hydronephrosis can be seen. There is a cystic-appearing right renal lesion that cannot be defined as a simple cyst. Further ginny p is recommended, beginning with a dedicated renal ultrasound. There is a 3.8 cm left adrenal nodule. While this is felt most likely related to a benign adrenal josh noma, the density measurement on this study does not confirm this. Please now consider a dedicated ad renal protocol MRI for further evaluation. Additional findings: Enlarged, fatty liver Levoconvex scoliotic curvature Degenerative changes, including involving the lower lumbar spine. Diverticulosis, without findings of active diverticulitis. Hysterectomy Reviewed by: Samy Rose MD on 01/19/2023 4:39 PM AKDT Approved by: Smay Rose MD on 01/19/2023 4:39 PM AKDT Station ID: [id number]
== END 2023-01-19 10:52 | disposition home or self-care (01) ==
LOC: DI 10:51
PROVIDERS: ATTEND Internal Medicine
DX: N20.0 Calculus of kidney (principal); N28.1 Cyst of kidney, acquired; E27.9 Disorder of adrenal gland, unspecified

== ENCOUNTER 2023-02-09 18:40 | Outpatient (CLI) | payer MEDICARE, OTHER ==
--- NOTE | 2023-02-11 09:30 | Ultrasound Report ---
PROCEDURE: Retroperitoneal INDICATIONS: RENAL LESION TECHNIQUE: Real-time scanning was performed of the retroperitoneal organs, with image documentation. COMPARISON: CT abdomen and pelvis on January 19, 2023 FINDINGS: Evaluation is limited secondary to body habitus Kidneys: Kidneys are normal in size. Right kidney measures 13.2 cm long; left kidney measures 11.7 cm long. Right renal cortical thickness is 2 cm; left renal cortical thickness is 1.5 cm. No solid masses, hydronephrosis, or nephrolithiasis. Anechoic cystic lesion in the right upper pole measuring 4.9 x 2.9 x 4.6 cm with no septations or solid component on the provided images. Bladder: Pre-void bladder volume is 164.9 mL. Post-void residual is minimal. Pre-void images demon strate no intraluminal masses or stones. On pre-void images, no ureteral jets are noted with color D oppler interrogation. (Of note, ureteral jets may not be detectable in up to 25% of cases due to ins ufficient differences in specific gravity between ureteral and bladder urine). Miscellaneous: No free abdominal fluid. IMPRESSION: Evaluation is limited secondary to body habitus 1. No hydronephrosis or nephrolithiasis bilaterally. 2. Cystic lesion in the right upper pole measuring 4.9 x 2.9 x 4.6 cm with no septations or solid com ponent on the provided images with Hounsfield unit of [address] Findings likely represent a proteinaceous cyst. Given suboptimal imaging, recommend short interval follow-up in 3 months (includ ing a cine clip). Reviewed by: Obie Mondragon MD on 02/11/2023 9:29 AM PST Approved by: Obie Mondragon MD on 02/11/2023 9:29 AM PST Station ID: [id number]
== END 2023-02-09 18:41 | disposition home or self-care (01) ==
LOC: DI 18:40
PROVIDERS: ATTEND Internal Medicine
DX: N28.89 Other specified disorders of kidney and ureter (principal)

== ENCOUNTER 2023-02-12 13:56 | Outpatient (CLI) | payer MEDICARE, OTHER ==
[2023-02-12 18:03] LABS: BASOPHILS # (AUTO) 0.1 10^3/uL (0.0-0.1); BASOPHILS % (AUTO) 0.5 %; EOSINOPHILS # (AUTO) 0.1 10^3/uL (0.0-0.7); EOSINOPHILS % (AUTO) 0.6 %; HCT - HEMATOCRIT 41.7 % (37.0-47.0); HGB - HEMOGLOBIN 12.7 g/dL (12.0-16.0); LYMPHOCYTES # (AUTO) 1.4 10^3/uL (1.5-3.5); LYMPHOCYTES % (AUTO) 11.5 %; MEAN CORPUSCULAR HEMOGLOBIN 28.7 pg (27.0-31.0); MEAN CORPUSCULAR HGB CONC 30.5 g/dL (32.0-36.0); MEAN CORPUSCULAR VOLUME 94.1 fL (81.0-99.0); MEAN PLATELET VOLUME 10.4 fL (7.9-10.8); MONOCYTES % (AUTO) 8.4 %; NEUTROPHILS # (AUTO) 9.4 10^3/uL (1.5-6.6); NEUTROPHILS % (AUTO) 78.4 %; PLT - PLATELET COUNT 323 10^3/uL (130-450); RED BLOOD COUNT 4.43 10^6/uL (4.20-5.40); RED CELL DISTRIBUTION WIDTH 14.7 % (12.0-15.0)
[2023-02-12 18:28] LABS: ALBUMIN 4.3 g/dL (3.2-5.5); CHOLESTEROL 152 mg/dL; HDL CHOLESTEROL 38 mg/dL; LDL CHOLESTEROL,CALCULATED 79 mg/dL; LDL/HDL RATIO 2.1 (<4.4); TRIGLYCERIDES 174 mg/dL (48-352); VLDL CHOLESTEROL 35 mg/dL
[2023-02-12 18:34] LABS: CREATININE,URINE 105.7 mg/dL; MICROALBUM/CREATININE RATIO,UR 9.5 ug/mg (<30.0)
[2023-02-12 18:50] LABS: ALBUMIN/GLOBULIN RATIO 1.4 (1.0-2.2); ALKALINE PHOSPHATASE 67 IU/L (42-121); ALT ALANINE AMINOTRANSFERASE 34 IU/L (10-60); AST ASPARTATE AMINOTRANSFERASE 18 IU/L (10-42); BILIRUBIN,TOTAL 0.5 mg/dL (0.2-1.0); BUN - BLOOD UREA NITROGEN 37 mg/dL (6-20); CALCIUM 10.6 mg/dL (8.5-10.3); CHLORIDE 87 mmol/L (101-111); CREATININE 0.8 mg/dL (0.6-1.3); GFR - MDRD 70 (>89); GLUCOSE 117 mg/dL (74-104); POTASSIUM 2.9 mmol/L (3.5-4.5); SODIUM 141 mmol/L (135-145); TOTAL PROTEIN 7.4 g/dL (6.4-8.9)
[2023-02-12 19:14] LABS: CARBON DIOXIDE - CO2 > 45 mmol/L (21-32)
[2023-02-12 22:16] LABS: ESTIMATED AVERAGE GLUCOSE 154 mg/dL (70-100)
== END 2023-02-12 13:57 | disposition home or self-care (01) ==
LOC: LAB.N 13:56
PROVIDERS: ATTEND Internal Medicine Cardiovascular Disease
DX: I50.30 Unspecified diastolic (congestive) heart failure (principal); M25.562 Pain in left knee; Z96.652 Presence of left artificial knee joint; E11.22 Type 2 diabetes mellitus with diabetic chronic kidney disease; E11.65 Type 2 diabetes mellitus with hyperglycemia; E78.2 Mixed hyperlipidemia
CPT/HCPCS: 36415; 80053; 80061; 82043; 82570; 83036; 83721; 85025; 85651; 86140

== ENCOUNTER 2023-05-10 12:43 | Outpatient (CLI) | payer MEDICARE, OTHER ==
--- NOTE | 2023-05-10 17:19 | Ultrasound Report ---
PROCEDURE: Renal (Retroperitoneal) INDICATIONS: RENAL CYST TECHNIQUE: Real-time scanning was performed of the retroperitoneal organs, with image documentation. COMPARISON: Retroperitoneal ultrasound 02/10/2020. FINDINGS: Kidneys: Kidneys are normal in size. Right kidney measures 12.0 cm long; left kidney measures 12.4 cm long. Right renal cortical thickness is 0.8 cm; left renal cortical thickness is 0.8 cm. No celia d masses, hydronephrosis, or nephrolithiasis. Right exophytic simple cyst measuring 4.2 x 3.7 x 3.9 c m or slightly decreased since prior. IMPRESSION: Right exophytic simple cyst measuring up to 4.2 cm, slightly decreased in size compared to prior. Reviewed by: Maya Amin MD on 05/10/2023 5:17 PM PST Approved by: Maya Amin MD on 05/10/2023 5:17 PM PST Station ID: [id number]
== END 2023-05-10 12:44 | disposition home or self-care (01) ==
LOC: DI 12:43
PROVIDERS: ATTEND Internal Medicine
DX: N28.1 Cyst of kidney, acquired (principal); E87.6 Hypokalemia
CPT/HCPCS: 36415; 80048

== ENCOUNTER 2023-05-10 15:53 | Outpatient (CLI) | payer MEDICARE, OTHER ==
[2023-05-10 18:04] LABS: CALCIUM 9.6 mg/dL (8.5-10.3); CREATININE 0.9 mg/dL (0.6-1.3); POTASSIUM 3.8 mmol/L (3.5-4.5)
== END 2023-05-10 15:54 | disposition home or self-care (01) ==
LOC: LAB.N 15:53
PROVIDERS: ATTEND Internal Medicine Cardiovascular Disease
DX: E87.6 Hypokalemia (principal)
CPT/HCPCS: 36415; 80048

== ENCOUNTER 2023-06-05 21:45 | Outpatient (CLI) | payer MEDICARE, OTHER | END 2023-06-05 21:46 | disposition EMS.NT | LOC: EMS 21:45 | DX: Z03.89 Encounter for observation for other suspected diseases and conditions ruled out (principal) ==

== ENCOUNTER 2023-07-16 14:00 | Outpatient (CLI) | payer MEDICARE, OTHER ==
[2023-07-16 14:37] LABS: BASOPHILS % (AUTO) 0.4 %; EOSINOPHILS # (AUTO) 0.1 10^3/uL (0.0-0.7); EOSINOPHILS % (AUTO) 0.9 %; HCT - HEMATOCRIT 40.3 % (37.0-47.0); HGB - HEMOGLOBIN 11.9 g/dL (12.0-16.0); LYMPHOCYTES # (AUTO) 1.3 10^3/uL (1.5-3.5); LYMPHOCYTES % (AUTO) 12.4 %; MEAN CORPUSCULAR HEMOGLOBIN 27.5 pg (27.0-31.0); MEAN CORPUSCULAR HGB CONC 29.5 g/dL (32.0-36.0); MEAN CORPUSCULAR VOLUME 93.1 fL (81.0-99.0); MEAN PLATELET VOLUME 9.5 fL (7.9-10.8); MONOCYTES # (AUTO) 1.1 10^3/uL (0.0-1.0); MONOCYTES % (AUTO) 10.6 %; NEUTROPHILS # (AUTO) 7.7 10^3/uL (1.5-6.6); NEUTROPHILS % (AUTO) 75.4 %; PLT - PLATELET COUNT 312 10^3/uL (130-450); RED BLOOD COUNT 4.33 10^6/uL (4.20-5.40); RED CELL DISTRIBUTION WIDTH 15.4 % (12.0-15.0); WHITE BLOOD COUNT 10.2 x10^3/uL (4.8-10.8)
[2023-07-16 14:51] LABS: CALCIUM 9.9 mg/dL (8.5-10.3); CREATININE 1.2 mg/dL (0.6-1.3); POTASSIUM 4.2 mmol/L (3.5-4.5)
--- NOTE | 2023-07-16 15:29 | XRAY Report ---
PROCEDURE: Chest 2V INDICATIONS: DYSPNEA TECHNIQUE: 2 views of the chest were acquired. COMPARISON: None. FINDINGS: Surgical changes and devices: None. Lungs and pleura: There is diffuse interlobular septal thickening. No focal airspace consolidation. No pleural effusion or pneumothorax. Mediastinum: Mediastinal contours appear normal. Heart size is mildly enlarged, as before. Bones and chest wall: No suspicious bony lesions. Overlying soft tissues appear unremarkable. IMPRESSION: Cardiomegaly and interstitial prominence suggesting fluid overload. Reviewed by: Yolie Butts MD on 07/16/2023 3:28 PM PDT Approved by: Yolie Butts MD on 07/16/2023 3:28 PM PDT Station ID: [id number]
== END 2023-07-16 14:01 | disposition home or self-care (01) ==
LOC: DI 14:00
PROVIDERS: ATTEND Internal Medicine
DX: I51.7 Cardiomegaly (principal); R06.00 Dyspnea, unspecified; I50.30 Unspecified diastolic (congestive) heart failure; R60.9 Edema, unspecified
CPT/HCPCS: 36415; 80048; 83880; 85025

== ENCOUNTER 2023-08-01 23:24 | Outpatient (CLI) | payer MEDICARE, OTHER | END 2023-08-01 23:59 | disposition short-term general hospital (02) | LOC: EMS 23:24 | DX: I48.91 Unspecified atrial fibrillation (principal); I10 Essential (primary) hypertension; R00.1 Bradycardia, unspecified | CPT/HCPCS: A0425; A0429; A0888 ==

== ENCOUNTER 2023-08-11 19:11 | Outpatient (CLI) | payer MEDICARE, OTHER | END 2023-08-11 23:59 | disposition short-term general hospital (02) | LOC: EMS 19:11 | DX: I48.91 Unspecified atrial fibrillation (principal); Z79.01 Long term (current) use of anticoagulants | CPT/HCPCS: A0425; A0429; A0888 ==

== ENCOUNTER 2023-08-21 12:41 | Outpatient (CLI) | payer MEDICARE, OTHER | END 2023-08-21 23:59 | disposition EMS.NT | LOC: EMS 12:41 | DX: Z03.89 Encounter for observation for other suspected diseases and conditions ruled out (principal) ==

== ENCOUNTER 2023-08-27 14:06 | Outpatient (CLI) | payer MEDICARE, OTHER | END 2023-08-27 23:59 | disposition left against medical advice (07) | LOC: EMS 14:06 | DX: R29.6 Repeated falls (principal); R42 Dizziness and giddiness; I10 Essential (primary) hypertension ==

== ENCOUNTER 2023-08-28 02:44 | Outpatient (CLI) | payer MEDICARE, OTHER | END 2023-08-28 23:59 | disposition EMS.NT | LOC: EMS 02:44 | DX: Z03.89 Encounter for observation for other suspected diseases and conditions ruled out (principal) ==